=== PATIENT | male | born 1930 | race Hispanic/Latino ===

== ENCOUNTER 2016-12-29 06:27 | Emergency (ER) | payer MEDICARE ==
--- NOTE | 2016-12-29 07:15 | Cat Scan Report ---
FINAL REPORT PROCEDURE: CT HEAD/BRAIN WO CON TECHNIQUE: Computerized tomography of the head was performed without contrast material. HISTORY: FALL/HIT HEAD/PAIN COMPARISON: No prior studies are available for comparison. FINDINGS: Skull and scalp: Normal. Paranasal sinuses: There is fluid in the sphenoid sinus.. Ventricles and subarachnoid spaces: There is moderate central and cortical atrophy. There is no hydrocephalus or asymmetry.. Cerebrum: No evidence of hemorrhage, acute infarction or mass. There is an old lacunar defect in the right frontal lobe with surrounding gliosis suggesting old infarct. Cerebellum and brainstem: No evidence of hemorrhage, acute infarction or mass. Vasculature: Normal. Comments: None. 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 There are age related involutional changes. There is no hemorrhage, edema, mass, mass effect or midline shift. The bony calvarium is intact. There is sphenoid sinusitis.
--- NOTE | 2016-12-29 09:45 | Emergency Department Report ---
ED Fall HPI - General Chief Complaint: Fall Stated Complaint: FALL Time Seen by Provider: 12/29/16 09:33 Source: patient, family, RN notes reviewed Mode of arrival: Ambulatory Limitations: No Limitations - History of Present Illness Initial Comments: 86-year-old male presents to the emergency department after a fall at home. Patient states that he got up at approximately 3:30 AM to use the bathroom. He states he tripped on a railing around the toilet and fell, hitting his head and the right side of his chest on the rail. There was no loss of consciousness. Patient denies chest pain, shortness of breath, or palpitations prior to the fall. At this time, the patient is complaining of right-sided chest pain. Pain is described as sharp and has been constant since onset. Pain does not radiate. There are no other complaints. MD Complaint: fall -: Sudden, During the night Time: 03:30 Fall From: standing Fall Witnessed: no Place Fall Occurred: home Loss of Consciousness: none Prolonged Down Time?: no Symptoms Prior to Fall: none Location: head, chest Severity: mild Quality: sharp Context: tripped/slipped - Related Data Previous Rx's Medication Instructions Recorded Last Taken Type HYDROcodone/APAP 5-325 [[place] 1 each PO Q6HR PRN #20 tablet 12/29/16 Unknown Rx 5/325] Allergies Allergy/AdvReac Type Severity Reaction Status Date / Time No Known Allergies Allergy Unverified 11/11/13 16:09 ED Review of Systems ROS: Stated complaint: FALL Other details as noted in HPI Comment: All other systems reviewed and negative Cardiovascular: chest pain ED Past Medical Hx - Past Medical History Previous Medical History?: Yes Hx Hypertension: Yes Hx Seizures: Yes - Surgical History Past Surgical History?: No - Family History Family history: no significant - Social History Smoking Status: Never Smoker Substance Use Type: None - Medications Home Medications: Home Medications Medication Instructions Recorded Confirmed Last Taken Type HYDROcodone/APAP 5-325 [[place] 1 each PO Q6HR PRN #20 tablet 12/29/16 Unknown Rx 5/325] ED Physical Exam - General Limitations: No Limitations General appearance: alert, in no apparent distress - Head Head exam: Present: normocephalic, other (1 cm laceration noted over right lateral eyebrow. No active bleeding.) - Eye Eye exam: Present: normal appearance, PERRL, EOMI - ENT ENT exam: Present: normal exam, normal orophraynx. Absent: mucous membranes moist - Neck Neck exam: Present: normal inspection, full ROM. Absent: tenderness - Respiratory Respiratory exam: Present: normal lung sounds bilaterally, chest wall tenderness (right lateral lower chest wall tender to palpation. No crepitus or deformity noted. No ecchymosis noted.). Absent: respiratory distress - Cardiovascular Cardiovascular Exam: Present: regular rate, normal rhythm, normal heart sounds - GI/Abdominal GI/Abdominal exam: Present: soft, normal bowel sounds, hernia (small umbilical hernia, easily reducible). Absent: distended, tenderness - Extremities Exam Extremities exam: Present: normal inspection, full ROM. Absent: tenderness - Back Exam Back exam: Present: normal inspection, full ROM. Absent: tenderness - Neurological Exam Neurological exam: Present: alert, oriented X3. Absent: motor sensory deficit - Skin Skin exam: Present: warm, dry ED Course Vital Signs 12/29/16 12/29/16 06:30 10:41 Temperature 98.7 F Pulse Rate 102 H Respiratory 18 20 Rate Blood Pressure 150/77 O2 Sat by Pulse 95 93 Oximetry - Laceration /Wound Repair Right Face Wound Location: face Wound Length (cm): 2 Wound's Depth, Shape: superficial, linear Wound Explored: clean Wound Repaired With: Dermabond Sterile Dressing Applied?: No ED Medical Decision Making - Radiology Data Radiology results: report reviewed, image reviewed interpreted by me: X-rays of the right ribs show no evidence of fracture. Head CT shows no acute intracranial abnormality. - Medical Decision Making Imaging results reviewed and discussed with the patient and family. Wound has been repaired using adhesive glue, see procedure note. Patient will be discharged home at this time. - Differential Diagnosis contusion, fracture, forehead laceration, SDH Critical care attestation.: If time is entered above; I have spent that time in minutes in the direct care of this critically ill patient, excluding procedure time. ED Disposition Clinical Impression: Laceration of forehead without complication Qualifiers: Encounter type: initial encounter Qualified Code(s): S01.81XA - Laceration without foreign body of other part of head, initial encounter Contusion of right chest wall Qualifiers: Encounter type: initial encounter Qualified Code(s): S20.211A - Contusion of right front wall of thorax, initial encounter Disposition: DISCHARGED TO HOME OR SELFCARE Is pt being admited?: No Condition: Stable Instructions: Contusion in Adults (ED), Skin Adhesive Care (ED) Prescriptions: HYDROcodone/APAP 5-325 [[place] 5/325] 1 each PO Q6HR PRN #20 tablet PRN Reason: Pain Referrals: ARABELLA SHAH JR, MD [Primary Care Provider] - 3-5 Days Time of Disposition: 10:51
[2016-12-29] MEDS ORDERED: NORCO 5/325 ONE (10:25)
[2016-12-29] MEDS ORDERED: NORCO 5/325 PO ONE (10:45)
--- NOTE | 2016-12-29 10:46 | XRay Report ---
Chest and ribs 3 views: History: Status post fall. Pain. Findings: This is osteopenia. No definite evidence of acute fracture noted. No lytic or blastic lesions. COPD with scarring lower lobes. No consolidation or pleural effusion. Impression: No definite evidence of acute fracture.
[2016-12-29 11:23] VITALS: BP 153/79
== END 2016-12-29 11:20 | disposition home or self-care (01) ==
LOC: ED 06:27
DX: S01.81XA Laceration without foreign body of other part of head, initial encounter (principal); S20.211A Contusion of right front wall of thorax, initial encounter; W18.30XA Fall on same level, unspecified, initial encounter; Y93.9 Activity, unspecified; Y92.9 Unspecified place or not applicable; Y99.9 Unspecified external cause status; I10 Essential (primary) hypertension
CPT/HCPCS: 70450; 99284

== ENCOUNTER 2017-07-24 20:16 | Emergency (ER) | payer MEDICARE ==
[2017-07-24 21:15] LABS: Basophils % (Auto) 0.3 % (0.0-1.8); Eosinophils % (Auto) 1.5 % (0.0-4.3); Hematocrit 45.1 % (35.5-45.6); Hemoglobin 14.7 gm/dl (11.8-15.2); Mean Corpuscular HGB Conc 33 % (32-34); Mean Corpuscular Hemoglobin 31 pg (28-32); Mean Corpuscular Volume 94 fl (84-94); Platelet Count 157 K/mm3 (140-440); Red Blood Count 4.82 M/mm3 (3.65-5.03); Red Cell Distribution Width 14.5 % (13.2-15.2); White Blood Count 6.4 K/mm3 (4.5-11.0)
[2017-07-24 21:38] LABS: INR 1.02 (0.87-1.13)
[2017-07-24 21:42] LABS: Alanine Aminotransferase 17 units/L (7-56); Albumin 4.1 g/dL (3.9-5); Albumin/Globulin Ratio 1.4 %; Alkaline Phosphatase 88 units/L (35-129); Anion Gap 19 mmol/L; BUN/Creatinine Ratio 24; Blood Urea Nitrogen 19 mg/dL (9-20); Calcium 8.7 mg/dL (8.4-10.2); Carbon Dioxide 27 mmol/L (22-30); Chloride 98.1 mmol/L (98-107); Glucose 174 mg/dL (75-100); Potassium 4.2 mmol/L (3.6-5.0); Sodium 140 mmol/L (137-145)
[2017-07-24 21:54] LABS: Creatine Kinase MB 2.8 ng/mL (0.0-4.0)
--- NOTE | 2017-07-24 23:26 | Cat Scan Report ---
FINAL REPORT PROCEDURE: CT head without contrast. TECHNIQUE: Computerized tomography of the head was performed without contrast material. HISTORY: Syncope. COMPARISON: CT head 12/29/2016. FINDINGS: There is mild cerebral atrophy. There is a small area of encephalomalacia within the right frontal lobe. This was present previously and is consistent with an old stroke. There are no mass lesions. There is no intracranial hemorrhage. The calvarium appears intact. The mastoid air cells and paranasal sinuses are clear. 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 No interval change.
--- NOTE | 2017-07-24 23:34 | XRay Report ---
FINAL REPORT PROCEDURE: Chest. TECHNIQUE: AP and lateral views. HISTORY: Syncope. COMPARISON: No prior studies are available for comparison. FINDINGS: The heart size is normal. There is mild tortuosity and faint calcification in the thoracic aorta. The lungs are clear and mildly hyperinflated. There are no pleural effusions. The soft tissues are unremarkable. The thoracic skeleton is osteopenic. A vertebroplasty procedure has been done at approximately T12 or L1. IMPRESSION: COPD.
--- NOTE | 2017-07-25 00:40 | Emergency Department Report ---
ED Syncope HPI - General Chief Complaint: Syncope Stated Complaint: PASSING OUT Time Seen by Provider: 07/24/17 22:11 Source: patient, family (son) Exam Limitations: no limitations - History of Present Illness Initial Comments: Patient had history of CVA 3 years ago which was the beginning of when he started have seizures. He sees neurology and has been on keppra 500 mg bid until a year ago when the dose was reduced to 250 mg bid. A few days ago and today he has had 10-15 seconds of absent thinking and loss of time. Today it occurred while playing cards but no one reportedly noticed. There were no other symptoms such as focal neurologic deficits. He denies falling, tonic/clonic movement, or change in position. No F/C. His son and the patient report that he had similar episodes with his seizures after his stroke but had no episodes in over 2 years. Timing/Prior Episodes: recent history Precipitating Factors: Positive: other ("Absent consciousness, in a daze.") Episode Description: Last 10-15 seconds Loss of Consciousness: brief (seconds) Current Symptoms: back to normal - Related Data Allergies/Adverse Reactions: Allergies No Known Allergies Allergy (Verified 07/24/17 20:17) Home Medications: Ambulatory Orders Aspirin [Adult Low Dose Aspirin EC] 81 mg PO QAM 12/29/16 Cholecalciferol Vit D3 [Vitamin D3] 1 cap PO QAM 12/29/16 Docusate Sodium [Colace CAP] 200 mg PO QHS 12/29/16 HYDROcodone/APAP 5-325 [[place] 5/325] 1 each PO Q6HR PRN #20 tablet 12/29/16 Lisinopril [Zestril TAB] 2.5 mg PO QAM 12/29/16 Metoprolol [Lopressor TAB] 1 tab PO QAM 12/29/16 Mv,Jorge,Min/Iron/Folic Acid/Lut [Complete Multi Tablet] 1 tab PO QAM 12/29/16 Olopatadine HCl [[place] 0.2%] 1 drop OU BID 12/29/16 Pramipexole 0.5 mg PO QHS 12/29/16 Temazepam [Restoril] 15 mg PO QHS 12/29/16 Terazosin 1 mg PO QHS 12/29/16 Vitamin E [Vitamin E] 1 cap PO QAM 12/29/16 diphenhydrAMINE [Benadryl CAP] 2 cap PO QHS 12/29/16 levETIRAcetam [Keppra TAB] 500 mg PO QDAY 12/29/16 ED Review of Systems ROS: Stated complaint: PASSING OUT Other details as noted in HPI Constitutional: denies: chills, fever Eyes: denies: eye pain, eye discharge, vision change ENT: denies: ear pain, throat pain Respiratory: denies: cough, shortness of breath, wheezing Cardiovascular: denies: chest pain, palpitations Endocrine: no symptoms reported Gastrointestinal: denies: abdominal pain, nausea, diarrhea Genitourinary: denies: urgency, dysuria Musculoskeletal: denies: back pain, joint swelling, arthralgia Skin: denies: rash, lesions Neurological: denies: headache, weakness, paresthesias Psychiatric: denies: anxiety, depression Hematological/Lymphatic: denies: easy bleeding, easy bruising ED Past Medical Hx - Past Medical History Previous Medical History?: Yes Hx Hypertension: Yes Hx Seizures: Yes - Social History Smoking Status: Never Smoker Substance Use Type: None - Medications Home Medications: Home Medications Medication Instructions Recorded Confirmed Last Taken Type Aspirin [Adult Low Dose Aspirin EC] 81 mg PO QAM 12/29/16 12/29/16 12/28/16 History Cholecalciferol Vit D3 [Vitamin D3] 1 cap PO QA 12/29/16 12/29/16 12/28/16 History Docusate Sodium [Colace CAP] 200 mg PO QHS 12/29/16 12/29/16 12/28/16 History HYDROcodone/APAP 5-325 [[place] 1 each PO Q6HR PRN #20 tablet 12/29/16 Unknown Rx 5/325] Lisinopril [Zestril TAB] 2.5 mg PO QAM 12/29/16 12/29/16 12/28/16 History Metoprolol [Lopressor TAB] 1 tab PO QAM 12/29/16 12/29/16 12/28/16 History Mv,Jorge,Min/Iron/Folic Acid/Lut 1 tab PO QAM 12/29/16 12/29/16 12/28/16 History [Complete Multi Tablet] Olopatadine HCl [[place] 0.2%] 1 drop OU BID 12/29/16 12/29/1612/28/17 History Pramipexole 0.5 mg PO QHS 12/29/16 12/29/16 12/28/16 History Temazepam [Restoril] 15 mg PO QHS 12/29/16 12/29/16 12/28/16 History Terazosin 1 mg PO QHS 12/29/16 12/29/16 12/28/16 History Vitamin E [Vitamin E] 1 cap PO QAM 12/29/16 12/29/16 12/28/16 History 1 cap diphenhydrAMINE [Benadryl CAP] 2 cap PO QHS 12/29/16 12/29/16 12/28/16 History levETIRAcetam [Keppra TAB] 500 mg PO QDAY 12/29/16 12/29/16 12/28/16 History 1/2 tab ED Physical Exam - General Limitations: No Limitations General appearance: alert, in no apparent distress - Head Head exam: Present: atraumatic, normocephalic - Eye Eye exam: Present: normal appearance - ENT ENT exam: Present: mucous membranes moist - Neck Neck exam: Present: normal inspection - Respiratory Respiratory exam: Present: normal lung sounds bilaterally. Absent: respiratory distress - Cardiovascular Cardiovascular Exam: Present: regular rate, normal rhythm. Absent: systolic murmur, diastolic murmur, rubs, gallop - GI/Abdominal GI/Abdominal exam: Present: soft, normal bowel sounds - Rectal Rectal exam: Present: deferred - Extremities Exam Extremities exam: Present: normal inspection - Back Exam Back exam: Present: normal inspection - Neurological Exam Neurological exam: Present: alert, oriented X3, CN II-XII intact, normal gait, motor sensory deficit, reflexes normal - Psychiatric Psychiatric exam: Present: normal affect, normal mood - Skin Skin exam: Present: warm, dry, intact, normal color. Absent: rash ED Course Vital Signs 07/24/17 07/24/17 07/24/17 20:18 22:16 22:21 Temperature 98 F Pulse Rate 81 77 Respiratory 20 16 Rate Blood Pressure 193/85 Blood Pressure 168/74 [Right] O2 Sat by Pulse 97 95 Oximetry 07/24/17 07/24/17 07/24/17 22:31 22:45 23:15 Temperature Pulse Rate 81 70 Respiratory 18 13 Rate Blood Pressure 181/78 181/78 142/64 Blood Pressure [Right] O2 Sat by Pulse 96 94 97 Oximetry 07/24/17 23:17 Temperature Pulse Rate 75 Respiratory 16 Rate Blood Pressure Blood Pressure 174/64 [Right] O2 Sat by Pulse 94 Oximetry ED Medical Decision Making - Lab Data Result diagrams: 07/24/17 20:41 07/24/17 20:41 Unremarkable labs - EKG Data -: EKG Interpreted by Me EKG shows normal: sinus rhythm, axis, intervals, QRS complexes (Q wave in II, III, aVF), ST-T waves Rate: normal - EKG Data When compared to previous EKG there are: no significant change Interpretation: no acute changes - Radiology Data Radiology results: report reviewed CXR with COPD Head CT with no acute changes from old CVA - Medical Decision Making Patient with likely reoccurrence of seizure on lower dose of keppra. Will increase keppra to 500 mg bid and follow up with neurologist which they believe that have an appointment beginning of July. Critical care attestation.: If time is entered above; I have spent that time in minutes in the direct care of this critically ill patient, excluding procedure time. ED Disposition Clinical Impression: Seizure COPD (chronic obstructive pulmonary disease) Qualifiers: COPD type: unspecified COPD Qualified Code(s): J44.9 - Chronic obstructive pulmonary disease, unspecified Disposition: DC-01 TO HOME OR SELFCARE Is pt being admited?: No Does the pt Need Aspirin: No Condition: Good Instructions: Chronic Obstructive Pulmonary Disease (ED), Recurrent Seizures Adult (ED) Referrals: ARABELLA SHAH JR, MD [Staff Physician] - 3-5 Days Time of Disposition: 00:55
[2017-07-25 00:43] VITALS: BP 157/65
== END 2017-07-25 01:41 | disposition home or self-care (01) ==
LOC: ED 20:16
DX: R56.9 Unspecified convulsions (principal); J44.9 Chronic obstructive pulmonary disease, unspecified; I10 Essential (primary) hypertension; Z79.82 Long term (current) use of aspirin
CPT/HCPCS: 36415; 70450; 71020; 80053; 82550; 82553; 84484; 85025; 85610; 93005; 93010